=== PATIENT | male | born 1965 | race Two or more races ===

== ENCOUNTER 2024-04-14 08:54 | Outpatient (AMB) | payer MEDICARE, MEDICAID, SELFPAY ==
[2024-04-14 09:06] VITALS: BP 113/70; PULSE 85; RESP 18; TEMP 36.5; O2SAT 96; BMI 41.4
--- NOTE | 2024-04-14 09:06 | ORTHONT_ITS ---
Vital signs 04/14/24 09:06 Height 1.8 m Height Method Stated Weight 134.32 kg Weight Measurement Method Standing Scale BMI 41.4 BP 113/70 Blood Pressure Source Automatic Cuff Blood Pressure Location Right Upper Arm Position Sitting Respiration 18 Pulse 85 Pulse Source Monitor Temp 97.7 F Temp Source Temporal Artery Scan Pulse Oximetry (%) 96 Oxygen Delivery Method Room Air Med/Allergies Allergies & Medications Allergies No Known Allergies Allergy (Verified 04/14/24 09:07) Medication Reconciliation insulin detemir U-100 100 unit/mL subcutaneous solution (Levemir U-100 Insulin) 30 unit subcut BID #0 vials 07/12/15 [History Confirmed 04/14/24] lisinopril 40 mg tablet 40 ml PO QDAY #0 tabs 07/12/15 [History Confirmed 04/14/24] metformin 1,000 mg tablet (Glucophage) 1,000 mg PO QDAC #0 tabs 07/12/15 [History Confirmed 04/14/24] albuterol sulfate 90 mcg/actuation aerosol inhaler (ProAir HFA) 1 - 2 puff inhalation Q6HR PRN WHEEZING #1 inh 12/04/16 [Rx Confirmed 04/14/24] atorvastatin 20 mg tablet (Lipitor) 20 mg PO QHS 05/21/18 [History Confirmed 04/14/24] cyclobenzaprine 10 mg tablet 10 mg PO Q8H #20 tabs 05/21/18 [Rx Confirmed 04/14/24] empagliflozin 25 mg tablet (Jardiance) 25 mg PO QAM 05/21/18 [History Confirmed 04/14/24] liraglutide 0.6 mg/0.1 mL (18 mg/3 mL) subcutaneous pen injector (Victoza 3-Jovon) 1.8 mg subcut QDAY 05/21/18 [History Confirmed 04/14/24] meloxicam 15 mg tablet 15 mg PO QDAY #20 tabs 05/21/18 [Rx Confirmed 04/14/24] empagliflozin 25 mg tablet (Jardiance) 25 mg PO QDAY 10/29/23 [History Confirmed 04/14/24] lisinopril 40 mg tablet 40 mg PO QDAY 10/29/23 [History Confirmed 04/14/24] semaglutide 0.25 mg or 0.5 mg (2 mg/3 mL) subcutaneous pen injector (Ozempic) 0.5 mg subcut QWEEK 10/29/23 [History Confirmed 04/14/24] Exam Exam Patient is in no acute distress and is cooperative with the examination today. Breathing is nonlabored. Patient has a normal mood and affect. Bilateral extremities were evaluated and demonstrates sensation intact to light touch. Palpable pedal pulses are present. No significant edema is present. Bilateral hips were examined. The patient has no pain with log roll of the hips. Internal rotation to 30 degrees and external rotation to 30 degrees is painless. Negative FADIR. Left knee demonstrates a total knee replacement with incision is clean dry and intact. Range of motion 0 to 110 degrees. Knee feels stable The right knee was also examined. The right knee is in [varus] alignment. Range of motion from [0-115] degrees. Knee is stable to varus and valgus as well as AP translation with <5mm. Patient has a [negative] [place]. There is [no] pain with patellofemoral compression and [no] crepitus noted. The knee is [tender] to palpation [medially]. X-rays demonstrate severe right knee arthritis. He is complete obliteration of medial joint space Assessment and Plan Problem List (1) Arthritis of knee, right: Status: Acute Plan: Patient is a 57-year-old male with right knee pain and right knee arthritis. She is failed conservative treatment including injections, and anti- inflammatories. We thus discussed total knee replacement is a reasonable option. He would like to get this done in July after his softball season The nature and purpose of the total knee replacement, alternative method(s) of treatment, the material risks involved, and the possibility of complications were fully explained to the patient. The patient does NOT have any of the following contraindications to TKA: - Active infection of the knee joint, OR - Active systemic bacteremia, OR - Active skin infection or open wound at surgical site, OR - Neuropathic arthritis, OR - Severe, rapidly progressive neurological disease, OR - Severe medical condition that makes risks of surgery outweigh the potential benefit The patient was told the most common risks and complications associated with a total knee replacement include, but are not limited to: blood clots in the leg, fatal pulmonary embolism, dislocation of the prosthesis, intraoperative and postoperative fractures of the femur or tibia, infection, failure of the prosthesis or grafting materials, complications from anesthesia, reactions to b lood transfusions, postoperative leg length inequality, instability of the knee replacement, nerve damage or injury, vascular injury, delayed wound healing, infection, other injury or even . In addition, there are risks associated with anesthesia given during this operation. Also, the patient was told that after undergoing a total knee replacement there may still be persistent pain or disability. The patient was informed that the success of this operation in part depends upon the mechanical devices which are going to be implanted and that these devices can fail or malfunction, and may need to be repaired or replaced and there are no guarantees as to the longevity of this device or its parts and that it or its parts could fail prematurely. The patient was also notified that during the course of surgery, there may be a need to use bone graft from donors, and that any bone graft used will be carefully screened for communicable diseases, including AIDS, hepatitis, Phil-Creutzfeldt, or other diseases, but despite the screening procedures, there is a small chance that they could contract one of these diseases. Finally, the patient was asked to follow completely and fully with all advice and recommended treatments, and that recovery and ultimate outcome are affected by their compliance with recommended treatment. We discussed the risks, benefits and treatment alternatives, and the patient is interested in proceeding with surgery. We will try to set this up as expeditiously as possible. Office Procedures GNS Level of Care Nursing/Assessment Patient Status: Established Patient Nursing Assessment/Reassesment: Medication Reconciliation, Update PMH in EMR and Vital Signs Coordination of Care: Complex Care and Chronic Disease 1-5, Education Complex Pt/Fam, Consent,records obtained, informed consent, Results/Orders obtained and Staff clarify orders Established Patient Charge Established Patient Point Assignment: 95 Established Patient Point Charge: EP Level 3 (80-115) MA Intake Visit Data Collection New Patient or Established: Established Patient (seen at [facility] within 3 years) Reason for Visit:: right knee f/u Seen by Clinical Staff ONLY (RN/MA): No Verbal consent obtained for Telemed visit?: No 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 PCP or OBGYN visit in last 3 months: Yes Hx Now: No Do You Feel Safe at Home: Yes Authorities Contacted: N/A Questionairres Past Medical History Past Medical History Have you ever been diagnosed with any of the following: Cardiology Problems Congestive Heart Failure: No Respiratory Problems Chronic Obstructive Pulmonary Disease (COPD): No Smoking: No Smoking Exposure: No Genital/Urinary Problems Renal Disease: No Endocrine Problems Diabetes Mellitus Type 1: No Diabetes Mellitus Type 2: Yes Subjective Visit Visit for: follow up visit and knee Immunization / Flu Flu Vaccine in the Last 12 Months: No Flu Vaccine Exclusion Criteria: No Exclusion Criteria History of Present Illness Chief complaint: right knee f/u This pleasant 58-year-old male with history of a left total knee replacement. His right knee is significant affecting his quality life and Happiness. 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 He would like to get his knee replaced Pain Pain level (0-10): 2 Pain duration: comes and goes Pain location: anterior and posterior Pain quality: dull and aching Ambulatory data Ambulatory device: none Treatments Improvement with previous injections: No Improvement with PT: No Improvement with NSAIDS: n/a Review of Systems Review of Systems: All systems negative unless otherwise noted in HPI.
== END 2024-04-14 09:22 | disposition home or self-care (01) ==
LOC: HODSRG 08:54
PROVIDERS: PCP Nurse Practitioner Family; Referring Provider Nurse Practitioner Family; Supervising Provider Orthopaedic Surgery Adult Reconstructive Orthopaedic Surgery; Visit Provider Orthopaedic Surgery Adult Reconstructive Orthopaedic Surgery
DX: M17.11 Unilateral primary osteoarthritis, right knee (principal); M25.561 Pain in right knee; E11.9 Type 2 diabetes mellitus without complications; Z96.652 Presence of left artificial knee joint
CPT/HCPCS: 99213; G0463

== ENCOUNTER → 2024-07-13 | Outpatient (CLI) | payer MEDICAID, SELFPAY ==
--- NOTE | 2024-07-13 08:35 | EKG_ITS ---
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
== END | disposition home or self-care (01) ==
PROVIDERS: PCP Nurse Practitioner Family; Referring Provider Nurse Practitioner Family; Visit Provider Nurse Practitioner Family
DX: Z01.818 Encounter for other preprocedural examination (principal)
CPT/HCPCS: 93005